=== PATIENT | female | born 1950 ===

== ENCOUNTER 2021-04-01 06:18 | Day surgery (SDC) | payer OTHER ==
[~2021-04-01 06:18] MED LIST: AMBIEN5 MG PO; AMOX1TAB5 PO; ASA81 MG; FOLIC ACID0.4 MG; PERCOCET 5/3251 TAB PO; PROTONIX40 MG PO; SYNTHROID137 MCG; TOPROL XL50 M1; VITAMIN B12-FO1 EACH
== END 2021-04-01 09:50 | disposition home or self-care (01) ==
LOC: AMB-ENDOS 06:18
PROVIDERS: ATTEND Surgery
DX: K57.20 Diverticulitis of large intestine with perforation and abscess without bleeding (principal)

== ENCOUNTER 2021-09-09 10:15 | Inpatient (IN) | payer OTHER ==
[~2021-09-09] VITALS: Ht 160 cm; Wt 78.5 kg
[~2021-09-09 10:15] MED LIST changes: -SYNTHROID137 MCG; +SYNTHROID137 MCG PO; -TOPROL XL50 M1; +TOPROL XL50 M1 PO
[2021-09-09] MEDS ORDERED: PEPCID40 MG PO (13:17)
[2021-09-16] MEDS ORDERED: B-122500 MCG (08:22)
[2021-09-16] MEDS ORDERED: SIMVASTATIN5 MG (08:22)
[2021-09-16] MEDS ORDERED: OPTIMAL D31250 MCG (08:22)
[2021-09-16] MEDS ORDERED: DICLOFENAC POTA50 MG (08:22)
[2021-09-16] MEDS ORDERED: LOSARTAN POTASS50 MG (08:22)
[2021-09-18] MEDS ORDERED: PERCOCET 5-3251 EACH PO (16:54)
== END 2021-09-18 18:13 | disposition home or self-care (01) | DRG 331 ==
LOC: ADM 10:15 → SURH 09-15 09:00 → O/R 09-15 09:18 → SURG 09-15 09:18 → EDSTATUS 09-15 10:15 → CIR.AMB 09-15 10:15 → SURH 09-15 10:15 → SURG 09-15 15:52 → SURH 09-17 21:13
PROVIDERS: ADMIT Surgery; ATTEND Surgery
PROC: 0DBP4ZZ Excision of Rectum, Percutaneous Endoscopic Approach (ICD-10-PCS; 2021-09-15)
PROC: 0DBU4ZZ Excision of Omentum, Percutaneous Endoscopic Approach (ICD-10-PCS; 2021-09-15)
PROC: 0DJD8ZZ Inspection of Lower Intestinal Tract, Via Natural or Artificial Opening Endoscopic (ICD-10-PCS; 2021-09-15)
PROC: 4A12X4Z Monitoring of Cardiac Electrical Activity, External Approach (ICD-10-PCS; 2021-09-15)
PROC: 3E0F7SF Introduction of Other Gas into Respiratory Tract, Via Natural or Artificial Opening (ICD-10-PCS; 2021-09-15)
PROC: 0DTN4ZZ Resection of Sigmoid Colon, Percutaneous Endoscopic Approach (ICD-10-PCS; principal; 2021-09-15 09:00)
DX: K57.20 Diverticulitis of large intestine with perforation and abscess without bleeding (principal); K66.0 Peritoneal adhesions (postprocedural) (postinfection); R59.0 Localized enlarged lymph nodes; K62.89 Other specified diseases of anus and rectum